=== PATIENT | male | born 1945 | race Caucasian/White ===

== ENCOUNTER → 2022-11-28 | Day surgery (SDC) | payer OTHER ==
[~2022-11-28] VITALS: Ht 167.6 cm; Wt 74.8 kg
[~2022-11-28] MED LIST: ACETAMINOPHEN I.V. 1000 MG /100 ML IVPB PREMIX IV ONE; ACETAMINOPHEN I.V. 1000 MG 100 ML IV ONE; BUPIVACAINE /EPINEPHRINE/PF 0.25% 30 ML VIAL ONE; DESFLURANE 15 MIN GAS INH ONE; DEXAMETHASONE SOD PHOSPHATE 4 MG/ML VIAL ONE; HYDROmorphone 1 MG/ML INJ. CARTRIDGE IVP PRN; KETOROLAC TROMETHAMINE 30 MG VIAL ONE; LABETALOL 100 MG/ 20ML VIAL IVP PRN; LIDOCAINE 2%, 20 ML MDV ONE; LR 1,000 ML IV SCH; LR 1,000 ML IV.SOLN IV ONE; MEPERIDINE HCL/PF 25 MG/ML DISP.SYRIN IVP PRN; METOCLOPRAMIDE HCL 10 MG/2 ML VIAL IVP PRN; MIDAZOLAM HCL 5 MG/ML VIAL (VERSED) IV ONE; NS IRRIG SOLN 1000 ML IR ONE; ONDANSETRON HCL 4 MG/2 ML VIAL ONE; PROPOFOL 200MG/ 20ML VIAL (DIPRIVAN) IV ONE; SUGAMMADEX SODIUM 200 MG/2 ML VIAL IV ONE; ceFAZolin SODIUM 2 GM in D5W 50 ML IV ONE; fentaNYL CITRATE 250 MCG/5 ML AMP ONE; hydrALAZINE HCL 20 MG/ML VIAL IVP PRN
[2022-11-28 17:35] VITALS: BP_SYST 139
== END | disposition home or self-care (01) ==
LOC: SDS 09:13
PROVIDERS: ATTEND Surgery
DX: K40.30 Unilateral inguinal hernia, with obstruction, without gangrene, not specified as recurrent (principal); K40.90 Unilateral inguinal hernia, without obstruction or gangrene, not specified as recurrent; I10 Essential (primary) hypertension; E78.5 Hyperlipidemia, unspecified; K21.9 Gastro-esophageal reflux disease without esophagitis; M19.90 Unspecified osteoarthritis, unspecified site; Z20.822 Contact with and (suspected) exposure to COVID-19; Z79.899 Other long term (current) drug therapy
CPT/HCPCS: 49650; 36415; 87426; C1781; J3490 ×3; J1100; J1885; J2001; J2250; J2405; J2704; J3010; J7060; J7120; C1727; J0131; S2900; E0190